=== PATIENT | male | born 1965 | race Caucasian/White ===

== ENCOUNTER 2017-10-18 08:29 | Emergency (ER) | payer BC, OTHER ==
[2017-10-18 09:15] LABS: CHLORIDE,CL 105 mmol/L (98-107); SODIUM,NA 139 mmol/L (136-145)
[2017-10-18] MEDS ORDERED: Pantoprazole 40 MG Vial IVPUSH ONE (09:33)
[2017-10-18] MEDS ORDERED: Sodium Chloride 0.9% 1,000 ML IV SCH (09:45)
--- NOTE | 2017-10-18 09:52 | EDM.PDOC ---
ED HPI GENERAL MEDICAL PROBLEM - General Chief Complaint: General Stated Complaint: headache, dizziness Time Seen by Provider: 10/18/17 09:15 Source of Information: Reports: Patient History Limitations: Reports: No Limitations - History of Present Illness INITIAL COMMENTS - FREE TEXT/NARRATIVE: Patient reports approximately one week history of dark/tarry stools. Has had GI bleeds in past. Had one extensive workup at [facility] in past but no bleed location identified. Since then has had brief episodic bleeds that would last a day or two, and patient never went in for these as they always resolved on own. He felt this would also eventually resolve. Last dark stool was yesterday. Today he bent over to place something under the table. When he stood up patient nearly passed out and it was at that time he figured that he should come in to be evaluated. Has headache, nausea. Describes abdominal discomfort as more nausea and not really pain. No other pain complaint. No emesis. Has been eating/drinking. Urinating well. No neuro changes. No HEENT/Resp/CV complaints. Headache Pain Score (Numeric/FACES): 6 Abdominal Pain Score (Numeric/FACES): 5 - Related Data Allergies Allergy/AdvReac Type Severity Reaction Status Date / Time bee venom protein (honey bee) Allergy Anaphylactic Verified 03/11/17 04:24 Shock codeine Allergy Anxiety Verified 10/18/17 08:52 Home Meds: Home Meds Allopurinol [Zyloprim] 100 mg PO DAILY 03/10/17 [History] Losartan [Cozaar] 100 mg PO DAILY 03/10/17 [History] Metoprolol Succinate 50 mg PO DAILY 03/10/17 [History] Escitalopram Oxalate 20 mg PO DAILY 03/11/17 [History] atorvaSTATin Calcium [Atorvastatin Calcium] 10 mg PO DAILY 03/11/17 [History] hydroCHLOROthiazide [Hydrochlorothiazide] 25 mg PO DAILY 03/11/17 [History] Aspirin [Halfprin] 81 mg PO DAILY #90 tab.ec 03/12/17 [Rx] miSOPROStol [Cytotec] 25 mg PO BID 10/18/17 [History] Past Medical History HEENT History: Reports: Other (See Below) Other HEENT History: glasses Cardiovascular History: Reports: High Cholesterol, Hypertension, Other (See Below) Other Cardiovascular History: Know right bundle branch block (2016) Musculoskeletal History: Reports: Arthritis, Other (See Below) Other Musculoskeletal History: L shoulder Neurological History: Reports: None Psychiatric History: Reports: Anxiety, Depression, Mood Swings, Panic Attack - Infectious Disease History Infectious Disease History: Reports: None - Past Surgical History Cardiovascular Surgical History: Reports: None GI Surgical History: Reports: Appendectomy, Bariatric Procedure, Colonoscopy, Hernia, Abdominal, Other (See Below) Other GI Surgeries/Procedures: gastric bypass 2011 Musculoskeletal Surgical History: Reports: Other (See Below) Other Musculoskeletal Surgeries/Procedures:: L rotator cuff repaid 10/22/2016 laparoscopic. neck surgery for C5 and C 6 with plate and 2 screws Social & Family History - Family History HEENT: Reports: None Cardiac: Reports: Hypertension, [place] Other Cardiac Family History: mother also with hypertension, diabetes, macular degeneration along with cataract Respiratory: Reports: None GI: Reports: None : Reports: None OBGYN: Reports: None Musculoskeletal: Reports: None Neurological: Reports: None Psychiatric: Reports: None Endocrine/Metabolic: Reports: None Hematologic: Reports: None Immunologic: Reports: None Dermatologic: Reports: None Oncologic: Reports: None - Tobacco Use Smoking Status *Q: Never Smoker - Caffeine Use Caffeine Use: Reports: Soda Other Caffeine Use: 2 diet mountain dew per day - Alcohol Use Days Per Week of Alcohol Use: 7 Number of Drinks Per Day: 2 Total Drinks Per Week: 14 - Recreational Drug Use Recreational Drug Use: No ED ROS GENERAL - Review of Systems Review Of Systems: ROS reveals no pertinent complaints other than HPI. ED EXAM, GENERAL - Physical Exam Exam: See Below Exam Limited By: No Limitations General Appearance: Alert, No Apparent Distress, Obese Eye Exam: Bilateral Eye: EOMI, PERRL Ears: Normal External Exam Nose: No: Nasal Deformity, Nasal Swelling, Nasal Drainage Throat/Mouth: Normal Inspection, Normal Voice, No Airway Compromise Head: Atraumatic, Normocephalic Neck: Normal Inspection, Supple, Full Range of Motion Respiratory/Chest: No Respiratory Distress, Lungs Clear, Normal Breath Sounds, No Accessory Muscle Use, Chest Non-Tender Cardiovascular: Normal Peripheral Pulses, Regular Rate, Rhythm, No Edema, No Murmur Peripheral Pulses: 2+: Radial (L), Radial (R) GI/Abdominal: Normal Bowel Sounds, Soft, Tender (minimal diffuse tenderness with palpation) (Male) Exam: Deferred Rectal (Males) Exam: Deferred (Patient refused rectal exam) Back Exam: Normal Inspection Extremities: Normal Range of Motion, Non-Tender, No Pedal Edema Neurological: Alert, Oriented, Normal Cognition, Normal Gait, No Motor/Sensory Deficits Psychiatric: Normal Affect, Normal Mood Skin Exam: Warm, Dry, Intact, Normal Color EKG INTERPRETATION EKG Date: 10/18/17 Time: 08:54 Rhythm: NSR Rate (Beats/Min): 84 [place]: Normal P-Wave: Present QRS: RBBB ST-T: Normal QT: Normal Comparison: No Change Course - Vital Signs Last Recorded V/S: Last Vital Signs Temp 36.8 C 10/18/17 08:39 Pulse 81 10/18/17 09:16 Resp 20 10/18/17 09:16 BP 145/76 H 10/18/17 09:16 Pulse Ox 100 10/18/17 09:16 - Orders/Labs/Meds Orders: Active Orders 24 hr Category Date Time Status EKG Documentation Completion [RC] ASDIRECTED Care 10/18/17 08:41 Active Sodium Chloride 0.9% [Normal Saline] 1,000 ml Med 10/18/17 09:45 Active IV ASDIRECTED Medication Orders Sodium Chloride (Normal Saline) 1,000 mls @ 150 mls/hr IV ASDIRECTED JOSE Last Admin: 10/18/17 09:37 Dose: 150 mls/hr Labs: Laboratory Tests 10/18/17 10/18/17 10/18/17 Range/Units 08:45 08:45 08:45 WBC 6.9 (4.0-10.2) K/uL RBC 2.94 L (4.33-5.41) M/uL Hgb 8.8 L (13.1-16.8) g/dL Hct 26.9 L (39.0-49.0) % MCV 91.5 (84.0-98.0) fL MCH 29.9 (28.2-33.3) pg MCHC 32.7 (31.7-36.0) g/dL RDW 13.3 (11.2-14.1) % Plt Count 286 (150-350) K/uL Neut % (Auto) 59.0 (45.0-80.0) % Lymph % (Auto) 28.8 (10.0-50.0) % [place] % (Auto) 9.6 (2.0-14.0) % Eos % (Auto) 1.0 (0.0-5.0) % Baso % (Auto) 1.6 (0.0-2.0) % Neut # (Auto) 4.04 (1.40-7.00) K/uL Lymph # (Auto) 1.97 (0.50-3.50) K/uL [place] # (Auto) 0.66 (0.00-1.00) K/uL Eos # (Auto) 0.07 (0.00-0.50) K/uL Baso # (Auto) 0.11 (0.00-0.20) K/uL D-Dimer, Quantitative < 100 (0-400) ng/mL Sodium 139 (136-145) mmol/L Potassium 4.4 (3.5-5.1) mmol/L Chloride 105 (98-107) mmol/L Carbon Dioxide 21.5 (21.0-32.0) mmol/L BUN 30 H (7-18) mg/dL Creatinine 1.25 H (0.51-1.17) mg/dL Est Cr Clr Drug Dosing 73.63 mL/min Estimated GFR (MDRD) > 60 mL/min Glucose 131 H (74-106) mg/dL Calcium 9.1 (8.5-10.1) mg/dL Total Bilirubin 0.2 (0.2-1.0) mg/dL AST 15 (15-37) U/L ALT 36 (12-78) U/L Alkaline Phosphatase 72 (46-116) IU/L Troponin I 0.000 (0.000-0.056) ng/mL Total Protein 6.2 L (6.4-8.2) g/dL Albumin 3.2 L (3.4-5.0) g/dL Meds: Medications Generic Name Dose Route Start Last Admin Trade Name Freq PRN Reason Stop Dose Admin Sodium Chloride 1,000 mls @ 150 mls/hr 10/18/17 09:45 10/18/17 09:37 Normal Saline IV 150 mls/hr ASDIRECTED JOSE Administration Discontinued Medications Generic Name Dose Route Start Last Admin Trade Name Freq PRN Reason Stop Dose Admin Pantoprazole Sodium 80 mg 10/18/17 09:33 10/18/17 09:46 Protonix Iv IVPUSH 10/18/17 09:34 80 mg ONETIME ONE Administration - Re-Assessments/Exams Free Text/Narrative Re-Assessment/Exam: GI bleed. Vital signs stable. Hgb 8.8 BUN/Cr mildly elevated. These were within normal limits in February when most recent labs on file were drawn. Protonix IV and NS bolus ordered. Call placed to [facility]. Patient accepted by . Transfer by EMS arranged to their facility. Departure - Departure Time of Disposition: 10:14 Disposition: DC/Tfer to [facility] 02 Condition: Good Clinical Impression: GI bleed Qualifiers: GI bleed type/associated pathology: unspecified gastrointestinal hemorrhage type Qualified Code(s): K92.2 - Gastrointestinal hemorrhage, unspecified - Discharge Information *PRESCRIPTION DRUG MONITORING PROGRAM REVIEWED*: Not Applicable *COPY OF PRESCRIPTION DRUG MONITORING REPORT IN PATIENT TEE: Not Applicable Forms: ED Department Discharge - My Orders Last 24 Hours: My Active Orders 10/18/17 08:41 EKG Documentation Completion [RC] ASDIRECTED 10/18/17 09:45 Sodium Chloride 0.9% [Normal Saline] 1,000 ml IV ASDIRECTED - Assessment/Plan Last 24 Hours: My Active Orders 10/18/17 08:41 EKG Documentation Completion [RC] ASDIRECTED 10/18/17 09:45 Sodium Chloride 0.9% [Normal Saline] 1,000 ml IV ASDIRECTED
== END 2017-10-18 10:40 ==
LOC: LL.ED 08:29
DX: K92.2 Gastrointestinal hemorrhage, unspecified (principal); I10 Essential (primary) hypertension; E78.00 Pure hypercholesterolemia, unspecified; F41.9 Anxiety disorder, unspecified; F32.9 Major depressive disorder, single episode, unspecified; Z79.899 Other long term (current) drug therapy; Z79.82 Long term (current) use of aspirin; Z88.5 Allergy status to narcotic agent; Z91.030 Bee allergy status
CPT/HCPCS: 36415; 80053; 84484; 85025; 85379; 93005; 96361; 96374; 99285; C9113; J7030

== ENCOUNTER 2018-09-21 09:00 | Emergency (ER) | payer BC ==
--- NOTE | 2018-09-21 09:48 | EDM.PDOC ---
ED HPI GENERAL MEDICAL PROBLEM - General Chief Complaint: General Stated Complaint: dizziness, near syncope Time Seen by Provider: 09/21/18 09:10 Source of Information: Reports: Patient History Limitations: Reports: No Limitations - History of Present Illness INITIAL COMMENTS - FREE TEXT/NARRATIVE: Patient is a 52-year-old gentleman who was brought in by ambulance from [facility] secondary to right-sided weakness massive headache and near syncopal episode patient complaints of right-sided weakness and right-sided headaches at this time a stroke code was called Onset: Sudden Duration: Hour(s): (1-1/2 hours ago), Improving Location: Reports: Head, Upper Extremity, Right, Lower Extremity, Right Quality: Reports: Throbbing Severity: Severe (Described as worse headache ever) Improves with: Reports: None Worsens with: Reports: Movement Associated Symptoms: Reports: Headaches, Nausea/Vomiting (Some nausea), Weakness - Related Data Allergies Allergy/AdvReac Type Severity Reaction Status Date / Time bee venom protein (honey bee) Allergy Anaphylactic Verified 09/05/18 12:09 Shock codeine Allergy Anxiety Verified 09/05/18 12:09 Home Meds: Home Meds Allopurinol [Zyloprim] 100 mg PO DAILY 03/10/17 [History] Losartan [Cozaar] 100 mg PO DAILY 03/10/17 [History] Metoprolol Succinate 50 mg PO DAILY 03/10/17 [History] Escitalopram Oxalate 20 mg PO DAILY 03/11/17 [History] atorvaSTATin Calcium [Atorvastatin Calcium] 10 mg PO DAILY 03/11/17 [History] hydroCHLOROthiazide [Hydrochlorothiazide] 25 mg PO DAILY 03/11/17 [History] ALPRAZolam [Xanax] 0.25 mg PO TID PRN 05/09/18 [History] Cholecalciferol (Vitamin D3) [Vitamin D3] 4,000 unit PO DAILY 05/09/18 [History] Multivit with Iron,Minerals [Spectravite Senior] 1 tab PO DAILY 05/09/18 [ History] Omeprazole 40 mg PO DAILY 05/09/18 [History] Cyanocobalamin (Vitamin B-12) [Vitamin B-12] 5,000 mcg SL DAILY 09/05/18 [ History] Diclofenac Sodium [Voltaren] 1 tab PO BID 09/05/18 [History] EPINEPHrine [Epipen] 0.3 mg INJECT ASDIRECTED PRN 09/05/18 [History] Hydrocodone/Acetaminophen [[place] 5-325 Tablet] 1 tab PO Q6HR PRN 09/05/18 [ History] Iron Ag,Ps/C/Fa6/B12/Zn/SA/Sto [Niferex Tablet] 1 cap PO DAILY 09/05/18 [History ] Iron Polysaccharide Complex [Poly-Iron] 150 cap PO DAILY 09/05/18 [History] Terazosin HCl [Terazosin] 5 mg PO BEDTIME 09/21/18 [History] buPROPion HCl [Wellbutrin SR] 150 mg PO DAILY 09/21/18 [History] Past Medical History HEENT History: Reports: Other (See Below) Other HEENT History: glasses Cardiovascular History: Reports: High Cholesterol, Hypertension, Other (See Below) Other Cardiovascular History: Know right bundle branch block (2016) Musculoskeletal History: Reports: Arthritis, Other (See Below) Other Musculoskeletal History: L shoulder Neurological History: Reports: None Psychiatric History: Reports: Anxiety, Depression, Mood Swings, Panic Attack - Infectious Disease History Infectious Disease History: Reports: None - Past Surgical History Cardiovascular Surgical History: Reports: None GI Surgical History: Reports: Appendectomy, Bariatric Procedure, Colonoscopy, Hernia, Abdominal, Other (See Below) Other GI Surgeries/Procedures: gastric bypass 2011 Musculoskeletal Surgical History: Reports: Other (See Below) Other Musculoskeletal Surgeries/Procedures:: L rotator cuff repaid 10/22/2016 laparoscopic. neck surgery for C5 and C 6 with plate and 2 screws Social & Family History - Family History Family Medical History: Noncontributory HEENT: Reports: None Cardiac: Reports: Hypertension, [place] Other Cardiac Family History: mother also with hypertension, diabetes, macular degeneration along with cataract Respiratory: Reports: None GI: Reports: None : Reports: None OBGYN: Reports: None Musculoskeletal: Reports: None Neurological: Reports: None Psychiatric: Reports: None Endocrine/Metabolic: Reports: None Hematologic: Reports: None Immunologic: Reports: None Dermatologic: Reports: None Oncologic: Reports: None - Tobacco Use Smoking Status *Q: Never Smoker - Caffeine Use Caffeine Use: Reports: Coffee, Soda Other Caffeine Use: 2 diet mountain dew per day ED ROS GENERAL - Review of Systems Review Of Systems: See Below Constitutional: Reports: No Symptoms HEENT: Reports: Other (Revision when he stands up right-sided numbness) Respiratory: Reports: No Symptoms Cardiovascular: Reports: Lightheadedness, Other (Near syncopal) Endocrine: Reports: No Symptoms GI/Abdominal: Reports: Nausea : Reports: No Symptoms Musculoskeletal: Reports: Other (Right-sided weakness) Skin: Reports: No Symptoms Neurological: Reports: Headache, Numbness (Right side), Change in Speech Psychiatric: Reports: Depression Hematologic/Lymphatic: Reports: No Symptoms ED EXAM, GENERAL - Physical Exam Exam: See Below Exam Limited By: No Limitations General Appearance: Alert, WD/WN, Anxious, Mild Distress Eye Exam: Bilateral Eye: EOMI, PERRL, Vision Changes (On standing up and ambulate) Ears: Normal External Exam, Normal Canal, Hearing Grossly Normal, Normal TMs Ear Exam: Bilateral Ear: Auricle Normal, Canal Normal, TM normal Nose: Normal Inspection, Normal Mucosa, No Blood Throat/Mouth: Normal Inspection, Normal Lips, Normal Teeth, Normal Gums, Normal Oropharynx, Normal Voice, No Airway Compromise Head: Atraumatic, Normocephalic Neck: Normal Inspection, Supple, Non-Tender, Full Range of Motion Respiratory/Chest: No Respiratory Distress, Lungs Clear, Normal Breath Sounds, No Accessory Muscle Use, Chest Non-Tender Cardiovascular: Normal Peripheral Pulses, Regular Rate, Rhythm, No Edema, No Gallop, No JVD, No Murmur, No Rub GI/Abdominal: Normal Bowel Sounds, Soft, Non-Tender, No Organomegaly, No Distention, No Abnormal Bruit, No Mass (Male) Exam: Deferred Rectal (Males) Exam: Deferred Back Exam: Normal Inspection, Full Range of Motion, NT Extremities: Other (Right upper extremity mild drift right leg weakness on ambulating) Neurological: Alert, Oriented, CN II-XII Intact, Normal Cognition, Normal Gait ( Drags right leg), Slow to Respond Psychiatric: Depressed Mood, Other (Patient currently under a lot of stress) Skin Exam: Warm, Dry, Intact, Normal Color, No Rash Lymphatic: No Adenopathy Course - Vital Signs Last Recorded V/S: Last Vital Signs Temp 98.2 F 09/21/18 09:00 Pulse 60 09/21/18 09:40 Resp 15 09/21/18 09:40 BP 118/67 09/21/18 09:40 Pulse Ox 97 09/21/18 09:40 - Orders/Labs/Meds Orders: Active Orders 24 hr Category Date Time Status Head wo Cont [CT] Stat Exams 09/21/18 09:07 Taken PROLACTIN [REF] Stat Lab 09/21/18 09:27 Received Labs: Laboratory Tests 09/21/18 09/21/18 09/21/18 Range/Units 09:27 09:27 09:27 WBC 9.5 (4.0-10.2) K/uL RBC 4.27 L (4.33-5.41) M/uL Hgb 11.6 L D (13.1-16.8) g/dL Hct 35.0 L (39.0-49.0) % MCV 82.0 L D (84.0-98.0) fL MCH 27.2 L (28.2-33.3) pg MCHC 33.1 (31.7-36.0) g/dL RDW 16.1 H (11.2-14.1) % Plt Count 266 (150-350) K/uL Neut % (Auto) 82.6 H (45.0-80.0) % Lymph % (Auto) 10.4 (10.0-50.0) % [place] % (Auto) 6.3 (2.0-14.0) % Eos % (Auto) 0.2 (0.0-5.0) % Baso % (Auto) 0.5 (0.0-2.0) % Neut # (Auto) 7.81 H (1.40-7.00) K/uL Lymph # (Auto) 0.98 (0.50-3.50) K/uL [place] # (Auto) 0.60 (0.00-1.00) K/uL Eos # (Auto) 0.02 (0.00-0.50) K/uL Baso # (Auto) 0.05 (0.00-0.20) K/uL PT 10.6 (9.5-12.0) SEC INR 1.0 APTT 25.3 (21.0-31.3) SEC D-Dimer, Quantitative 139 (0-400) ng/mL Sodium (136-145) mmol/L Potassium (3.5-5.1) mmol/L Chloride (98-107) mmol/L Carbon Dioxide (21.0-32.0) mmol/L BUN (7-18) mg/dL Creatinine (0.51-1.17) mg/dL Est Cr Clr Drug Dosing mL/min Estimated GFR (MDRD) mL/min Glucose (74-106) mg/dL Calcium (8.5-10.1) mg/dL Magnesium (1.8-2.4) mg/dL Total Bilirubin (0.2-1.0) mg/dL AST (15-37) U/L ALT (12-78) U/L Alkaline Phosphatase (46-116) IU/L Creatine Kinase (26-308) U/L Creatine Kinase Index (0.0-2.5) % CK-MB (CK-2) (0.00-3.60) ng/mL Troponin I (0.000-0.056) ng/mL NT-Pro-B Natriuret Pep (0-125) pg/mL Total Protein (6.4-8.2) g/dL Albumin (3.4-5.0) g/dL 09/21/18 Range/Units 09:27 WBC (4.0-10.2) K/uL RBC (4.33-5.41) M/uL Hgb (13.1-16.8) g/dL Hct (39.0-49.0) % MCV (84.0-98.0) fL MCH (28.2-33.3) pg MCHC (31.7-36.0) g/dL RDW (11.2-14.1) % Plt Count (150-350) K/uL Neut % (Auto) (45.0-80.0) % Lymph % (Auto) (10.0-50.0) % [place] % (Auto) (2.0-14.0) % Eos % (Auto) (0.0-5.0) % Baso % (Auto) (0.0-2.0) % Neut # (Auto) (1.40-7.00) K/uL Lymph # (Auto) (0.50-3.50) K/uL [place] # (Auto) (0.00-1.00) K/uL Eos # (Auto) (0.00-0.50) K/uL Baso # (Auto) (0.00-0.20) K/uL PT (9.5-12.0) SEC INR APTT (21.0-31.3) SEC D-Dimer, Quantitative (0-400) ng/mL Sodium 138 (136-145) mmol/L Potassium 4.3 (3.5-5.1) mmol/L Chloride 104 (98-107) mmol/L Carbon Dioxide 24.8 (21.0-32.0) mmol/L BUN 21 H (7-18) mg/dL Creatinine 1.44 H (0.51-1.17) mg/dL Est Cr Clr Drug Dosing 63.19 mL/min Estimated GFR (MDRD) 51 mL/min Glucose 121 H (74-106) mg/dL Calcium 9.5 (8.5-10.1) mg/dL Magnesium 1.8 (1.8-2.4) mg/dL Total Bilirubin 0.5 (0.2-1.0) mg/dL AST 28 (15-37) U/L ALT 46 (12-78) U/L Alkaline Phosphatase 123 H (46-116) IU/L Creatine Kinase 37 (26-308) U/L Creatine Kinase Index 2.2 (0.0-2.5) % CK-MB (CK-2) 0.80 (0.00-3.60) ng/mL Troponin I 0.000 (0.000-0.056) ng/mL NT-Pro-B Natriuret Pep 116 (0-125) pg/mL Total Protein 7.4 (6.4-8.2) g/dL Albumin 3.8 (3.4-5.0) g/dL Departure - Departure Time of Disposition: 10:01 Disposition: DC/Tfer to Acute Hospital 02 Condition: Fair Clinical Impression: Right sided weakness, Stroke-like symptoms, CVA (cerebral vascular accident) - Discharge Information *PRESCRIPTION DRUG MONITORING PROGRAM REVIEWED*: No *COPY OF PRESCRIPTION DRUG MONITORING REPORT IN PATIENT TEE: No Referrals: Rajesh Chapa PA-C [Primary Care Provider] - Forms: ED Department Discharge Care Plan Goals: At this time CT of the head was done which is normal Spoke with neurologist at [facility] will transfer for MRI and workup at this time - My Orders Last 24 Hours: My Active Orders 09/21/18 09:07 Head wo Cont [CT] Stat 09/21/18 09:27 PROLACTIN [REF] Stat - Assessment/Plan Last 24 Hours: My Active Orders 09/21/18 09:07 Head wo Cont [CT] Stat 09/21/18 09:27 PROLACTIN [REF] Stat
== END 2018-09-21 10:05 ==
LOC: LL.ED 09:00
DX: I63.9 Cerebral infarction, unspecified (principal); G81.91 Hemiplegia, unspecified affecting right dominant side; F41.9 Anxiety disorder, unspecified; F32.9 Major depressive disorder, single episode, unspecified; Z79.899 Other long term (current) drug therapy; Z98.49 Cataract extraction status, unspecified eye; Z90.49 Acquired absence of other specified parts of digestive tract; Z91.030 Bee allergy status; Z88.5 Allergy status to narcotic agent
CPT/HCPCS: 36415; 70450; 80053; 82550; 82553; 83735; 83880; 84146; 84484; 85025; 85379; 85610; 85730; 93005; 99285-25

== ENCOUNTER 2020-05-13 11:17 | Emergency (ER) | payer BC ==
[2020-05-13 11:51] LABS: CHLORIDE,CL 108 mmol/L (98-107); SODIUM,NA 142 mmol/L (136-145)
--- NOTE | 2020-05-13 12:41 | EDM.PDOC ---
ED HPI GENERAL MEDICAL PROBLEM - General Chief Complaint: General Stated Complaint: headache, elevated blood pressure Time Seen by Provider: 05/13/20 11:40 Source of Information: Reports: Patient History Limitations: Reports: No Limitations - History of Present Illness INITIAL COMMENTS - FREE TEXT/NARRATIVE: Patient comes to ER with complaint of not feeling well. Variety of complaints- right sided headache, lightheadedness, vision changes with movement/head rotation, fatigue, dry mouth, and puffy lower legs. Describes vision symptoms as when one is intoxicated with alcohol. Better at rest. Leg puffiness has been going on for days. The other symptoms were noticed more-so today. Did start Lyrica several weeks ago. No other mediation changes. Patient admits to very unhealthy lifestyle. Drinks 6-8 small bottles of soda a day approximately. Packaged food/fast food. Has had neuro issues with headaches in past. Also numbness on right side. He was diagnosed with cervical issues and had neck surgery to correct that. Numbness resolved. No new numbness or focal weakness. Feels a bit unsteady when he walks. No recent illness/trauma. No other med changes. BP at [facility] noted to be elevated. Approx 170/110. Is on multiple antihypertensives. Headache Pain Score (Numeric/FACES): 7 - Related Data Allergies Allergy/AdvReac Type Severity Reaction Status Date / Time bee venom protein (honey bee) Allergy Anaphylactic Verified 02/26/20 14:30 Shock codeine Allergy Anxiety Verified 02/26/20 14:30 Home Meds: Home Meds Losartan [Cozaar] 100 mg PO DAILY 03/10/17 [History] allopurinoL [Zyloprim] 300 mg PO DAILY 03/10/17 [History] Escitalopram Oxalate 20 mg PO DAILY 03/11/17 [History] atorvaSTATin Calcium [Atorvastatin Calcium] 10 mg PO DAILY 03/11/17 [History] Cholecalciferol (Vitamin D3) [Vitamin D3] 5,000 unit PO DAILY 05/09/18 [History] Omeprazole 40 mg PO DAILY 05/09/18 [History] EPINEPHrine [Epipen] 0.3 mg INJECT ASDIRECTED PRN 09/05/18 [History] Iron Polysaccharide Complex [Poly-Iron] 150 cap PO DAILY 09/05/18 [History] Terazosin HCl [Terazosin] 5 mg PO BEDTIME 09/21/18 [History] Indomethacin 50 mg PO TID PRN 12/28/18 [History] carvediloL [Carvedilol] 12.5 mg PO BID 12/28/18 [History] Diclofenac Sodium [Voltaren] 25 mg PO BID 04/26/19 [History] Aspirin [Aspirin EC] 81 mg PO DAILY 11/11/19 [History] Baclofen 10 mg PO TID 11/11/19 [History] Multivitamin with Minerals [Multivitamins with Minerals] 1 tab PO DAILY 11/11/19 [History] busPIRone [Buspar] 15 mg PO BEDTIME PRN 11/11/19 [History] Calcium Carbonate [Calcium] 600 mg PO DAILY 02/26/20 [History] Cyanocobalamin (Vitamin B12) [Cyanocobalamin] 1,000 mcg IM ASDIRECTED 02/26/20 [History] Pregabalin [Lyrica] 25 mg PO Q12HR 05/13/20 [History] Past Medical History HEENT History: Reports: None, Impaired Vision Other HEENT History: glasses Cardiovascular History: Reports: High Cholesterol, Hypertension, Other (See Below) Other Cardiovascular History: Know right bundle branch block (2016) Respiratory History: Reports: None Gastrointestinal History: Reports: Bowel Obstruction Genitourinary History: Reports: None Musculoskeletal History: Reports: Arthritis, Back Pain, Chronic, Gout, Other (See Below) Other Musculoskeletal History: L shoulder Neurological History: Reports: None Psychiatric History: Reports: Anxiety, Depression, Mood Swings, Panic Attack Endocrine/Metabolic History: Reports: Obesity/BMI 30+, Vitamin D Deficiency Hematologic History: Reports: None, B12 Deficiency, Iron Deficiency Immunologic History: Reports: None Oncologic (Cancer) History: Reports: None Dermatologic History: Reports: None - Infectious Disease History Infectious Disease History: Reports: None - Past Surgical History Head Surgeries/Procedures: Reports: None HEENT Surgical History: Reports: None Other HEENT Surgeries/Procedures: neck surgery done on november 2018 with cage, plate, screws Cardiovascular Surgical History: Reports: None GI Surgical History: Reports: Appendectomy, Bariatric Procedure, Colonoscopy, Hernia, Abdominal, Other (See Below) Other GI Surgeries/Procedures: gastric bypass 2011 Male Surgical History: Reports: Circumcision, Nephrectomy, Other (See Below) Other Male Surgeries/Procedures: partial right nephrectomy December 2019 Neurological Surgical History: Reports: C-Spine, Other (See Below) Other Neurological Surgeries/Procedures: metal cage in neck Musculoskeletal Surgical History: Reports: Other (See Below) Other Musculoskeletal Surgeries/Procedures:: L rotator cuff repaid 10/22/2016 laparoscopic. neck surgery for C5 and C 6 with plate and 2 screws. L4 laminctomy Social & Family History - Family History Family Medical History: No Pertinent Family History HEENT: Reports: None Cardiac: Reports: Hypertension, [place] Other Cardiac Family History: mother also with hypertension, diabetes, macular degeneration along with cataract Respiratory: Reports: None GI: Reports: None : Reports: None OBGYN: Reports: None Musculoskeletal: Reports: None Neurological: Reports: None Psychiatric: Reports: None Endocrine/Metabolic: Reports: None Hematologic: Reports: None Immunologic: Reports: None Dermatologic: Reports: None Oncologic: Reports: None - Tobacco Use Tobacco Use Status *Q: Never Tobacco User Second Hand Smoke Exposure: No - Caffeine Use Caffeine Use: Reports: Soda Other Caffeine Use: 2 diet mountain dew per day but later admitted to drinking 4-6 bottles of soda when working. - Alcohol Use Alcohol Use in Last Twelve Months: No - Recreational Drug Use Recreational Drug Use: No ED ROS GENERAL - Review of Systems Review Of Systems: See Below Constitutional: Reports: Fatigue. Denies: Fever, Chills, Night Sweats, Diaphoresis, Decreased Appetite, Weight Loss HEENT: Reports: Vision Change. Denies: Vertigo Respiratory: Reports: No Symptoms Cardiovascular: Reports: Edema, Lightheadedness. Denies: Chest Pain, Claudication, Palpitations, Syncope GI/Abdominal: Reports: Diarrhea (one loose stool today. ). Denies: Abdominal Pain, Nausea, Vomiting : Reports: No Symptoms Musculoskeletal: Reports: Other (no acute changes from baseline) Skin: Reports: No Symptoms Neurological: Reports: Headache, Gait Disturbance (feels unsteady when walking). Denies: Confusion, Numbness, Paresthesia, Seizure, Syncope, Tingling Psychiatric: Reports: No Symptoms Hematologic/Lymphatic: Reports: No Symptoms ED EXAM, GENERAL - Physical Exam Exam: See Below Exam Limited By: No Limitations General Appearance: Alert, No Apparent Distress, Obese Eye Exam: Bilateral Eye: EOMI, PERRL Ears: Normal External Exam, Normal Canal, Hearing Grossly Normal Nose: No: Nasal Deformity, Nasal Swelling, Nasal Drainage Throat/Mouth: Normal Lips, Normal Voice, No Airway Compromise Head: Atraumatic, Normocephalic Neck: Normal Inspection, Supple, Non-Tender, Full Range of Motion Respiratory/Chest: No Respiratory Distress, Lungs Clear, Normal Breath Sounds, No Accessory Muscle Use Cardiovascular: Regular Rate, Rhythm, No Murmur GI/Abdominal: Normal Bowel Sounds, Soft, Non-Tender, No Distention, Other (ventral hernia present) (Male) Exam: Deferred Rectal (Males) Exam: Deferred Back Exam: No: CVA Tenderness (L), CVA Tenderness (R), Muscle Spasm Extremities: Pedal Edema (mild/bilateral). No: Joint Swelling, Michael's Sign, Leg Pain, Increased Warmth, Mottled, Pallor, Redness Neurological: Alert, Oriented, CN II-XII Intact, Normal Cognition, No Motor/Sensory Deficits, Other (a little unsteady walking into ER) Psychiatric: Normal Affect, Normal Mood Skin Exam: Warm, Dry, Intact, Normal Color, No Rash #1 Interpretation EKG Date: 05/13/20 Time: 11:30 Rhythm: NSR Rate (Beats/Min): 60 [place]: Normal P-Wave: Present QRS: RBBB ST-T: Normal QT: Normal Comparison: No Change (Nov 11 2019 comparison) Course - Vital Signs Last Recorded V/S: Last Vital Signs Temp 36.4 C 05/13/20 11:37 Pulse 56 L 05/13/20 12:03 Resp 18 05/13/20 12:03 BP 167/90 H 05/13/20 12:03 Pulse Ox 99 05/13/20 12:03 - Orders/Labs/Meds Orders: Active Orders 24 hr Category Date Time Status EKG Documentation Completion [RC] ASDIRECTED Care 05/13/20 11:18 Active Head wo Cont [CT] Stat Exams 05/13/20 11:18 Taken Sodium Chloride 0.9% [Saline Flush] Med 05/13/20 11:19 Active 10 ml FLUSH ASDIRECTED PRN Saline Lock Insert [OM.PC] Routine Oth 05/13/20 11:19 Ordered EKG 12 Lead [EK] Stat Ther 05/13/20 11:18 Ordered Medication Orders Sodium Chloride (Sodium Chloride 0.9% 10 Ml Syringe) 10 ml FLUSH ASDIRECTED PRN PRN Reason: Keep Vein Open Labs: Laboratory Tests 05/13/20 05/13/20 05/13/20 Range/Units 11:19 11:29 11:29 WBC 5.8 (4.0-10.2) K/uL RBC 4.22 L (4.33-5.41) M/uL Hgb 12.4 L (13.1-16.8) g/dL Hct 37.9 L (39.0-49.0) % MCV 89.8 D (84.0-98.0) fL MCH 29.4 (28.2-33.3) pg MCHC 32.7 (31.7-36.0) g/dL RDW 13.7 (11.2-14.1) % Plt Count 237 (150-350) K/uL Neut % (Auto) 60.4 (45.0-80.0) % Lymph % (Auto) 27.6 (10.0-50.0) % [place] % (Auto) 9.0 (2.0-14.0) % Eos % (Auto) 1.6 (0.0-5.0) % Baso % (Auto) 1.4 (0.0-2.0) % Neut # (Auto) 3.49 (1.40-7.00) K/uL Lymph # (Auto) 1.59 (0.50-3.50) K/uL [place] # (Auto) 0.52 (0.00-1.00) K/uL Eos # (Auto) 0.09 (0.00-0.50) K/uL Baso # (Auto) 0.08 (0.00-0.20) K/uL Sodium 142 (136-145) mmol/L Potassium 4.5 (3.5-5.1) mmol/L Chloride 108 H (98-107) mmol/L Carbon Dioxide 27.6 (21.0-32.0) mmol/L BUN 16 (7-18) mg/dL Creatinine 1.14 (0.51-1.17) mg/dL Est Cr Clr Drug Dosing 77.98 mL/min Estimated GFR (MDRD) > 60 mL/min Glucose 105 H (70-99) mg/dL Calcium 9.1 (8.5-10.1) mg/dL Magnesium 2.0 (1.8-2.4) mg/dL Total Bilirubin 0.4 (0.2-1.0) mg/dL AST 22 (15-37) U/L ALT 44 (12-78) U/L Alkaline Phosphatase 123 H (46-116) IU/L Total Protein 6.8 (6.4-8.2) g/dL Albumin 3.7 (3.4-5.0) g/dL Specimen Type Urinvoid Urine Color Yellow Urine Appearance Clear Urine pH 6.0 (5.0-9.0) Ur Specific [employer] [place] 1.010 (1.005-1.030) Urine Protein Negative (NEGATIVE) mg/dL Urine Glucose (UA) Negative (NEGATIVE) mg/dL Urine Ketones Negative (NEGATIVE) mg/dL Urine Occult Blood Negative (NEGATIVE) Urine Nitrite Negative (NEGATIVE) Urine Bilirubin Negative (NEGATIVE) Urine Urobilinogen 0.2 (0.2-1.0) E.U./dL Ur Leukocyte Esterase Negative (NEGATIVE) Urine RBC 0-5 /HPF Urine WBC 0-5 /HPF Ur Epithelial Cells Rare /LPF Urine Bacteria Rare (NONE TO FEW) /HPF Meds: Medications Generic Name Dose Route Start Last Admin Trade Name Freq PRN Reason Stop Dose Admin Sodium Chloride 10 ml 05/13/20 11:19 Sodium Chloride 0.9% 10 Ml Syringe FLUSH ASDIRECTED PRN Keep Vein Open Discontinued Medications Generic Name Dose Route Start Last Admin Trade Name Freq PRN Reason Stop Dose Admin Ketorolac Tromethamine 30 mg 05/13/20 12:37 Ketorolac 30 Mg/Ml Sdv IVPUSH 05/13/20 12:38 ONETIME ONE Tramadol HCl 100 mg 05/13/20 12:38 Tramadol 50 Mg Tab PO 05/13/20 12:39 ONETIME ONE - Radiology Interpretation CT Results Date: 05/13/20 CT Results Time: 12:33 (No acute changes on Head CT per Radiology) - Re-Assessments/Exams Free Text/Narrative Re-Assessment/Exam: 05/13/20 12:57 CT, EKG and labs overall unremarkable. Physical exam also nonfocal. No nystagmus. Patient slightly unsteady walking to ER bed when first arrived. Overall no change in complaints during stay. Suspect at this time that patient's pattern of complaints may reflect common side effects from Lyrica. Patient recently started on this medication. Review of common side effects of Lyrica show dizziness, somnolence, xerostomia, peripheral edema, blurred vision, and impaired coordination (current patient complaints) are all common reactions. Headache is not listed, however patient's developed a headache from Lyrica when she tried it. Plan at this time is conservative. Patient is recommended to stop taking Lyrica and see if the symptoms resolve over the next few days. Work note given for Michael. He thinks that he would like to retry the medication just at night if the side effects clear. Patient is also to follow up with his PCP for any ongoing concerns. He is to return to ER if new problems develop or worsening symptoms are noted. He refused overnight observation stay. Precautions reviewed prior to discharge. Departure - Departure Time of Disposition: 12:36 Disposition: Home, Self-Care 01 Condition: Good Clinical Impression: Side effect of medication - Discharge Information *PRESCRIPTION DRUG MONITORING PROGRAM REVIEWED*: Not Applicable *COPY OF PRESCRIPTION DRUG MONITORING REPORT IN PATIENT TEE: Not Applicable Referrals: Kendy Melchor LOCATE TECHNICIAN [Primary Care Provider] - Forms: ED Department Discharge Additional Instructions: Give yourself a three day wash out period to get the Lyrica out of your system. If symptoms improve, then we may be on the right track that this episode is linked with Lyrica. If you decide to restart the medication, agree that you can just do the nightly dose. If you re-develop the side effects, then discontinue and follow up with Kendy. Observe for changes. As discussed the problems you are experiencing may be due to something else. Keep an open mind. Follow up as needed for re-evaluation. Highly recommend adopting an anti-inflammatory diet and sharply reducing your intake of processed foods and soda! Sepsis Event Note (ED) - Evaluation Sepsis Screening Result: No Definite Risk - Focused Exam Vital Signs: Vital Signs Temp Pulse Resp BP Pulse Ox 05/13/20 12:03 56 L 18 167/90 H 99 05/13/20 11:39 59 L 18 162/81 H 98 05/13/20 11:37 36.4 C 61 16 184/94 H 97 05/13/20 11:17 36.6 C 59 L 16 156/73 H 98 - My Orders Last 24 Hours: My Active Orders 05/13/20 11:18 EKG Documentation Completion [RC] ASDIRECTED Head wo Cont [CT] Stat EKG 12 Lead [EK] Stat 05/13/20 11:19 Sodium Chloride 0.9% [Saline Flush] 10 ml FLUSH ASDIRECTED PRN Saline Lock Insert [OM.PC] Routine - Assessment/Plan Last 24 Hours: My Active Orders 05/13/20 11:18 EKG Documentation Completion [RC] ASDIRECTED Head wo Cont [CT] Stat EKG 12 Lead [EK] Stat 05/13/20 11:19 Sodium Chloride 0.9% [Saline Flush] 10 ml FLUSH ASDIRECTED PRN Saline Lock Insert [OM.PC] Routine
[2020-05-13] MEDS: traMADol 50 MG Tab PO ONE (12:59)
[2020-05-13] MEDS: Sodium Chloride 0.9% 10 ML Syringe FLUSH PRN (13:00)
[2020-05-13] MEDS: Ketorolac 30 MG/ML SDV IVPUSH ONE (13:00)
== END 2020-05-13 13:15 | disposition home or self-care (01) ==
LOC: LL.ED 11:17
DX: R51.9 Headache, unspecified (principal); R42 Dizziness and giddiness; R53.83 Other fatigue; R19.7 Diarrhea, unspecified; T42.6X5A Adverse effect of other antiepileptic and sedative-hypnotic drugs, initial encounter; E78.00 Pure hypercholesterolemia, unspecified; I10 Essential (primary) hypertension; M10.9 Gout, unspecified; I45.10 Unspecified right bundle-branch block; D50.9 Iron deficiency anemia, unspecified; E66.9 Obesity, unspecified; Z68.37 Body mass index [BMI] 37.0-37.9, adult; Z91.030 Bee allergy status; Z88.5 Allergy status to narcotic agent; Z79.82 Long term (current) use of aspirin; Z79.899 Other long term (current) drug therapy
CPT/HCPCS: 70450; 80053; 81001; 83735; 85025; 93005; 93010; 96374; 99284; 99284-25; A9270-GY; J1885